=== PATIENT | male | born 1975 | race African-American/Black ===

== ENCOUNTER 2019-04-25 17:08 | Emergency (ER) | payer OTHER ==
[~2019-04-25] VITALS: Ht 188 cm; Wt 86.0 kg
[2019-04-25 17:56] VITALS: BP 120/71
== END 2019-04-25 18:20 | disposition left against medical advice (07) ==
LOC: EMS 17:11 → EDBD 17:11 → EMS 18:20
DX: R55 Syncope and collapse (principal); R40.1 Stupor; R42 Dizziness and giddiness; F19.10 Other psychoactive substance abuse, uncomplicated; I10 Essential (primary) hypertension; Z59.0 Homelessness